=== PATIENT | female | born 1990 | race African-American/Black ===

== ENCOUNTER 2017-12-07 23:12 | Emergency (ER) | payer OTHER ==
[~2017-12-07] VITALS: Ht 157.5 cm; Wt 69.9 kg
[2017-12-07] MEDS ORDERED: HYDROCODONE/APAP 10MG-325MG TAB PO ONE (23:30)
--- NOTE | 2017-12-08 00:17 | Diagnostic Imaging Report ---
ANKLE 3 + VIEWS RIGHT HISTORY: Ankle pain status post injury COMPARISON: None FINDINGS: Bones: Acute, minimally displaced fracture of the medial and lateral malleoli with widening of the medial clear space Joints: Intra-articular extension of the medial malleolar fracture and widening of the ankle mortise. Soft tissues: Diffuse soft tissue edema around the right ankle. IMPRESSION: Acute, bimalleolar fracture with evidence of ankle mortise widening/ligamentous disruption and soft tissue swelling. Signed by: Dr. Nitin Key M.D. on 12/08/2017 12:13 AM
[2017-12-15] MEDS ORDERED: LEXAPRO10 MG PO (12:15)
[2017-12-15] MEDS ORDERED: ULTRAM 50MG50 MG PO (12:15)
== END 2017-12-08 01:41 | disposition home or self-care (01) ==
LOC: ER 23:12
DX: S82.844A Nondisplaced bimalleolar fracture of right lower leg, initial encounter for closed fracture (principal); W01.0XXA Fall on same level from slipping, tripping and stumbling without subsequent striking against object, initial encounter; Y93.01 Activity, walking, marching and hiking; Y92.008 Other place in unspecified non-institutional (private) residence as the place of occurrence of the external cause; F41.9 Anxiety disorder, unspecified
CPT/HCPCS: 99284

== ENCOUNTER → 2017-12-17 | Day surgery (SDC) | payer OTHER ==
[~2017-12-17] MED LIST: BACITRACIN 50,000 UNIT VIAL ONE; BUPIVACAINE HCL 0.5% INJ 30 ML VIAL INJ ONE; CEFAZOLIN SOD 2 GM/D5W 50ML 50 ML IV ONE; DEXAMETHASONE SOD PHOS INJ 4 MG/ML VIAL ONE; FENTANYL CITRATE/PF 100MCG/2 ML INJ ONE; KETOROLAC TROMETHAMINE 30 MG/ML VIAL ONE; LEXAPRO10 MG PO; LIDOCAINE HCL 2% LOCAL INJ 5 ML SDV VIAL INJ ONE; MEPERIDINE HCL INJ 50 MG/ML INJ ONE; MIDAZOLAM HCL 2 MG/2 ML VIAL ONE; ONDANSETRON HCL INJ 2 MG/ML VIAL ONE; PROPOFOL IV EMULSION 10 MG/ML 20 ML VIAL ONE; SEVOFLURANE INHAL SOLN 250 ML PEN BTL ONE; ULTRAM 50MG50 MG PO
--- OUTSIDE RECORDS SUMMARY | 2017-12-17 09:36 | XMS REPORT ---
[facility] Address Unknown Phone Unavailable Care Team Providers Care Concept Artist Name Role Phone ANDRES SHARMA Unavailable Unavailable Problems This patient has no known problems. Allergies, Adverse Reactions, Alerts This patient has no known allergies or adverse reactions. Medications This patient has no known medications. Results Test Description Test Time Test Comments Text Results Atomic Results Result Comments ANKLE 3 + VIEWS RIGHT [place] [address] Patient Name: TERRIE ENGLE MR #: [id number] : 1990 Age/Sex: 27/F Req #: [id number] Adm Physician: Ordered by: ANDRES SHARMA MD Report #: [id number] Location: ER Room/Bed: ___ Procedure: [id number] DX/ANKLE 3 + VIEWS RIGHT Exam Date: 12/07/17 Exam Time: 2355 REPORT STATUS: Signed ANKLE 3 + VIEWS RIGHT HISTORY: Ankle pain status post injury COMPARISON: None FINDINGS: Bones: Acute, minimally displaced fracture of the medial and lateral malleoli with widening of the medial clear space Joints: Intra-articular extension of the medial malleolar fracture and widening of the ankle mortise. Soft tissues: Diffuse soft tissue edema around the right ankle. IMPRESSION: Acute, bimalleolar fracture with evidence of ankle mortise widening/ligamentous disruption and soft tissue swelling. Signed by: Dr. Nitin Key M.D. on 12/08/2017 12:13 AM Dictated By: NITIN GAMBINO MD Transcribed By: PATRICK on 12/08/1712 COPY TO: ANDRES SHARMA MD
--- OUTSIDE RECORDS SUMMARY | 2017-12-17 09:36 | XMS REPORT | Continuity of Care Document ---
Author Author [facility] Organization [facility] Address [address] [place] [address] Phone Unavailable Care Team Providers Care Cash Application Clerk Name Role Phone NO, PCP PCP Unavailable Advance Directives Directive Response Recorded Date/Time Does the patient have an advance directive? No 12/08/17 12:52am If yes, is advance directive on file with [facility]? No 12/08/17 12:52am If not on file with [facility] will patient provide a copy? Yes 12/08/17 12:52am Do you have a Directive to Physician? No 12/08/17 12:52am Do you have a Medical Power of Playground Worker? No 12/08/17 12:52am Do you have an out of hospital Do Not Resuscitate Order? No 12/08/17 12:52am Do you have any special needs we should be aware of? No 12/08/17 12:52am Do you have a support person here with you today? Yes 12/08/17 12:52am Did patient receive Notice of Privacy Practices? Yes 12/08/17 12:52am Did patient receive patient rights and responsibilities? Yes 12/08/17 12:52am Problems No problem information available. Medications No medication information available. Social History Smoking Status Start Date Stop Date Never Smoker Hospital Discharge Instructions No hospital discharge instruction information available. Plan of Care Discharge Date 12/08/17 1:41am Disposition HOME, SELF-CARE Condition at Discharge Stable Instructions/Education Provided Splint/Cast Care Crutch Use Fractures - Ankle RICE Therapy Forms Provided Work/School Excuse Prescriptions See Medication Section Referrals CHICHO CAVAZOS MD Order Date: In AM Address: [address] [place] [address] EMANUEL SRIVASTAVA MD Address: [address] [place] [address] Additional Instructions/Education FOLLOW UP WITH ORTHOPEDIC SURGEON IN AM CALL FOR APPT TAKE MEDICATIONS PRESCRIBED Functional Status No functional status information available. Allergies, Adverse Reactions, Alerts No allergy information available. Immunizations No immunization information available. Vital Signs Acute Vital Signs Vital Response Date/Time Height 5 ft 2 in 12/07/2017 11:18pm Weight 154 lb 12/07/2017 11:18pm Body Mass Index 28.2 kg/m^2 12/07/2017 11:18pm Results No relevant diagnostic test, laboratory data and/or discharge summary information available. Procedures No procedure information available. Encounters Encounter Location Arrival/Admit Date Discharge/Depart Date Attending Provider Departed Emergency Room [facility] 12/07/17 11:12pm 12/08 1:41am ANDRES SHARMA MD
--- NOTE | 2017-12-17 23:51 | Operative Report ---
DATE OF PROCEDURE: December 17, 2017 PREOPERATIVE DIAGNOSIS: Displaced right bimalleolar ankle fracture. POSTOPERATIVE DIAGNOSIS: Displaced right bimalleolar ankle fracture. OPERATIONS/PROCEDURES PERFORMED: Patient underwent 1. Closed reduction of the right ankle mortise. 2. Open reduction and internal fixation of the right fibular fracture. 3. Internal fixation of the right medial malleolus fracture. 4. Application of a well-padded 3-sided splint. ASSISTANT MANAGER AIRSIDE OPERATIONS: None. ANESTHESIA: General endotracheal intubation anesthesia. IV FLUIDS: Per the anesthesia record. BRIEF DESCRIPTION OF OPERATIVE PROCEDURE: Ms. Mesa was taken to the operating room, placed in supine on the operating table. Following induction of general anesthesia, as well as endotracheal intubation, the patient's right lower extremity was examined under anesthesia. She was found to have a mild bruising and swelling about the right ankle joint. Fluoroscopic evaluation of the right ankle joint demonstrated a displaced bimalleolar ankle fracture with widening of the right ankle mortise. Patient's lower extremity was prepped and draped in standard surgical fashion. The case was begun by reducing the patient's ankle mortise in a closed fashion. This was, on fluoroscopy, found to be successful. An incision was then created over the lateral aspect of the ankle joint. This incision was carried through skin only. Blunt dissection used to deepen the incision to the level of the fibula. Superficial peroneal nerve was protected throughout the remainder of the case. A displaced fibular fracture was identified. The fracture site was cleaned. The fracture was reduced and held in place with a fracture reduction clamp. A single interfragmentary compression screw was placed across patient's fracture site compressing the fracture in its reduced position. A plate was then contoured to the lateral aspect of the fibula and that plate was affixed to the fibula with combinations of cortical and locking screws. This wound was then copiously irrigated. Fluoroscopic evaluation of the ankle joint demonstrated realignment of the patient's fibula. The patient's medial malleolus fracture, however, remained displaced. The lateral incision was closed in a multilayer fashion. Attention was then turned to the patient's medial malleolus fracture. A curvilinear incision was centered over the medial malleolus and this incision was deepened to the level of the patient's fracture site. Care was taken to protect the saphenous nerve and vein at this time. The fracture site was cleaned and found to have periosteum interdigitate between the fracture fragments. This was removed and the fracture was then reduced using a fracture reduction clamp. Two pins from the cannulated screw system was then advanced from distal to proximal across patient's fracture site stabilizing the fracture in its reduced position. Two screws were then inserted across the fracture site providing compression across the injury. Fluoroscopic evaluation again was performed and identified reduction of patient's ankle mortise and realignment of the patient's ankle injury. The wound was copiously irrigated and closed in a multilayer fashion. Sterile dressings were applied and the patient was provided with a well-padded multisided splint. The patient was then awakened and taken to the postanesthesia care unit in stable condition. Job#: [id number] CQ
== END | disposition home or self-care (01) ==
LOC: OR 09:33
PROVIDERS: ATTEND Specialist
DX: S82.841A Displaced bimalleolar fracture of right lower leg, initial encounter for closed fracture (principal); D57.3 Sickle-cell trait; F32.9 Major depressive disorder, single episode, unspecified; F41.9 Anxiety disorder, unspecified; W01.0XXA Fall on same level from slipping, tripping and stumbling without subsequent striking against object, initial encounter; Y92.009 Unspecified place in unspecified non-institutional (private) residence as the place of occurrence of the external cause
CPT/HCPCS: 27814; 76001; 81025; C1713 ×6; J1100; J1885; J2001; J2175; J2250; J2405

== ENCOUNTER 2018-03-12 15:04 | Outpatient (RCR) | payer OTHER ==
[~2018-03-12 15:04] MED LIST changes: -BACITRACIN 50,000 UNIT VIAL ONE; -BUPIVACAINE HCL 0.5% INJ 30 ML VIAL INJ ONE; -CEFAZOLIN SOD 2 GM/D5W 50ML 50 ML IV ONE; -DEXAMETHASONE SOD PHOS INJ 4 MG/ML VIAL ONE; -FENTANYL CITRATE/PF 100MCG/2 ML INJ ONE; -KETOROLAC TROMETHAMINE 30 MG/ML VIAL ONE; -LIDOCAINE HCL 2% LOCAL INJ 5 ML SDV VIAL INJ ONE; -MEPERIDINE HCL INJ 50 MG/ML INJ ONE; -MIDAZOLAM HCL 2 MG/2 ML VIAL ONE; -ONDANSETRON HCL INJ 2 MG/ML VIAL ONE; -PROPOFOL IV EMULSION 10 MG/ML 20 ML VIAL ONE; -SEVOFLURANE INHAL SOLN 250 ML PEN BTL ONE
== END 2018-03-31 ==
LOC: PT 15:04
PROVIDERS: ATTEND Specialist
DX: S82.891A Other fracture of right lower leg, initial encounter for closed fracture (principal)